=== PATIENT | male | born 2000 | race Caucasian/White ===

== ENCOUNTER 2020-01-17 15:16 | Observation (INO) ==
[2020-01-17] MEDS ORDERED: Naloxone 0.4 MG/ML INJ IVP PRN ×2 (16:09→21:35)
[2020-01-17] MEDS ORDERED: Ondansetron 4 MG/2 ML VIAL IVP PRN ×2 (16:09→21:35)
[2020-01-17] MEDS ORDERED: *HR* OxyCODONE/APAP 5/325 TABLET PO PRN ×2 (16:14→21:35)
[2020-01-17] MEDS ORDERED: 0.9 % Sodium Chloride 1,000 ML IVC SCH ×2 (16:15→21:35)
[2020-01-17 16:28] LABS: Basophils % 0.4 %; Eosinophils % 0.1 %; Hematocrit 49.4 % (37.5-50.1); Hemoglobin 16.9 g/dL (12.9-16.9); Immature Granulocytes % 0.2 % (0-4); Lymphocytes # 2.1 K/mcL (0.6-4.6); Lymphocytes % 21.1 %; Mean Corpuscular HGB Conc 34.2 g/dL (31.6-35.5); Mean Corpuscular Volume 87.7 fL (83.0-100.0); Mean Platelet Volume 9.8 fL (9.4-12.4); Monocytes # 0.8 K/mcL (0.0-1.3); Monocytes % 8.3 %; Neutrophils # 6.8 K/mcL (1.6-8.9); Platelet Count 207 K/mcL (140-400); Red Blood Count 5.63 M/mcL (4.19-5.50); Red Cell Distribution Width 12.1 % (11.5-14.5); Segmented Neutrophils % 69.9 %; White Blood Count 9.7 K/mcL (4.3-11.1)
[2020-01-17 16:35] LABS: INR 1.1; Prothrombin Time 12.4 Seconds (9.4-12.1)
[2020-01-17 16:38] LABS: Activated Partial Thrombo Time 32.1 Seconds (26.0-36.0)
[2020-01-17 16:46] LABS: Alanine Aminotransferase 26 Units/L (7-52); Albumin/Globulin Ratio 1.9 (1.1-2.2); Alkaline Phosphatase 83 Units/L (34-104); Aspartate Amino Transferase 15 Units/L (13-39); BUN/Creatinine Ratio 14 (6-26); Bilirubin,Total 0.7 mg/dL (0.3-1.0); Blood Urea Nitrogen 11 mg/dL (6-20); Calcium 9.8 mg/dL (8.6-10.3); Carbon Dioxide 26 mEq/L (23-29); Chloride 101 mEq/L (98-107); Creatine Kinase 92 Units/L (30-223); Globulin 2.7 g/dL (2.4-3.5); Glucose 88 mg/dL (70-105); Osmolality,Calculated 279 (280-300); Sodium 135 mEq/L (136-145); Total Protein 7.7 g/dL (6.4-8.9); eGFR For African Americans > 60 (> 60); eGFR For Non-African Americans > 60 (> 60)
[2020-01-17] MEDS ORDERED: Clindamycin 600 MG/50 ML 600 MG/50 ML IV.SOLN IVPB SCH (17:00)
[2020-01-17] MEDS ORDERED: Lidocaine 1% 20 ML MDV ONE (18:56)
[2020-01-17] MEDS ORDERED: Bupivacaine/EPI 1:200k 0.5%PF 10 ML VIAL ONE (18:56)
[2020-01-17] MEDS ORDERED: Acetaminophen IV 1,000 MG/100 ML INFUS..BTL ONE (19:00)
[2020-01-17] MEDS ORDERED: Famotidine 20 MG/2 ML VIAL ONE (19:00)
[2020-01-17] MEDS ORDERED: *HR* Midazolam HCl 2 MG/2 ML VIAL ONE (19:13)
[2020-01-17] MEDS ORDERED: *HR* FentaNYL (PF) 100 MCG/2 ML VIAL ONE (19:13)
[2020-01-17] MEDS ORDERED: *HR* Propofol 200 MG/20 ML VIAL IVP ONE ×2 (19:13→19:26)
[2020-01-17] MEDS ORDERED: Lidocaine -MPF 2% 2 ML VIAL ONE ×2 (19:24)
[2020-01-17] MEDS ORDERED: Ondansetron 4 MG/2 ML VIAL ONE (19:24)
[2020-01-17] MEDS ORDERED: Dexamethasone 4 MG/ML VIAL ONE (19:24)
[2020-01-17] MEDS ORDERED: Lidocaine/EPI 1:200k 1% PF 10 ML VIAL ONE (19:26)
[2020-01-17] MEDS ORDERED: *HR* Succinylcholine 200 MG/10 ML VIAL IVP ONE (19:32)
[2020-01-17] MEDS ORDERED: *HR* OxyCODONE Immed Rel 5 MG TABLET PO PRN (20:09)
[2020-01-17] MEDS: ceFAZolin 2,000 MG in 0.9 % Sodium Chloride 100 ML IVPB SCH (23:19)
[2020-01-18] MEDS ORDERED: ceFAZolin 2,000 MG in 0.9 % Sodium Chloride 100 ML IVPB SCH
[2020-01-18] MEDS ORDERED: Clindamycin 600 MG/50 ML 600 MG/50 ML IV.SOLN IVPB SCH
[2020-01-18 02:52] LABS: Basophils % 0.2 %; Hematocrit 43.4 % (37.5-50.1); Immature Granulocytes % 0.2 % (0-4); Lymphocytes # 0.7 K/mcL (0.6-4.6); Lymphocytes % 10.2 %; Mean Corpuscular HGB Conc 33.4 g/dL (31.6-35.5); Mean Corpuscular Hemoglobin 29.7 pg (28.0-33.3); Mean Corpuscular Volume 88.8 fL (83.0-100.0); Mean Platelet Volume 9.8 fL (9.4-12.4); Monocytes # 0.2 K/mcL (0.0-1.3); Monocytes % 2.4 %; Neutrophils # 5.7 K/mcL (1.6-8.9); Platelet Count 185 K/mcL (140-400); Red Blood Count 4.89 M/mcL (4.19-5.50); Red Cell Distribution Width 12.3 % (11.5-14.5); White Blood Count 6.6 K/mcL (4.3-11.1)
[2020-01-18 02:53] LABS: Hemoglobin 14.5 g/dL (12.9-16.9)
[2020-01-18 03:13] LABS: BUN/Creatinine Ratio 15 (6-26); Blood Urea Nitrogen 12 mg/dL (6-20); Calcium 8.7 mg/dL (8.6-10.3); Carbon Dioxide 20 mEq/L (23-29); Chloride 106 mEq/L (98-107); Glucose 161 mg/dL (70-105); Magnesium 1.9 mg/dL (1.6-2.6); Osmolality,Calculated 281 (280-300); Phosphorous 3.1 mg/dL (2.7-4.5); Potassium 4.5 mEq/L (3.5-5.1); Sodium 134 mEq/L (136-145); eGFR For African Americans > 60 (> 60); eGFR For Non-African Americans > 60 (> 60)
[2020-01-18 07:24] VITALS: BP 145/64
[2020-01-18] MEDS: ceFAZolin 2,000 MG in 0.9 % Sodium Chloride 100 ML IVPB SCH (08:47)
== END 2020-01-18 10:35 | disposition home or self-care (01) ==
LOC: 3NENU 15:16 → EMEROOARM 15:16 → SUATTDRO 16:53 → 3NENU 17:16
PROVIDERS: ADMIT Internal Medicine; ATTEND Internal Medicine